=== PATIENT | female | born 1950 | race Hispanic/Latino ===

== ENCOUNTER 2017-06-14 18:43 | Emergency (ER) | payer MEDICARE, BC ==
[2017-06-14 18:44] VITALS: BMI 25.8
[2017-06-14 18:54] VITALS: BP 125/91; PULSE 78; RESP 24; TEMP 98.6; O2SAT 97
--- NOTE | 2017-06-14 19:25 | ED PDOC ---
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 The patient states that she took an accidental trip and fall in her kitchen landing on her right shoulder and felt like it was dislocated. She states that when EMS arrived at her home and turned her over, she heard her shoulder pop back into place. The patient denies LOC, headache, dizziness, chest pain, shortness of breath, dyspnea on exertion, abdominal pain, vomiting, diarrhea, back/neck pain, or any other complaint. Time/Duration: Prior to Arrival Symptom Onset: Sudden Symptom Course: Unchanged Activities at Onset: Rest, Light Context: Work Past Medical History - Provider Review Nursing Documentation Reviewed: Yes - Infectious Disease Hx of Infectious Diseases: None - Tetanus Immunization Tetanus Immunization: Unknown - Reproductive Menopause: Yes - Cardiac Hx Hypertension: Yes - Psychiatric Hx Anxiety: Yes Hx Substance Use: No Other/Comment: agoraphobia - Surgical History Hx Tubal Ligation: Yes - Suicidal Assessment Feels Threatened In Home Enviroment: No Family/Social History - Physician Review Nursing Documentation Reviewed: Yes Family/Social History: No Known Family HX Smoking Status: Unknown If Ever Smoked Hx Alcohol Use: No Hx Substance Use: No Allergies/Home Meds Allergies/Adverse Reactions: Allergies Penicillins Allergy (Verified 06/14/17 18:47) RASH flu vac Allergy (Uncoded 06/14/17 18:47) ITCHING Home Medications: Home Meds Medication Instructions Recorded Confirmed Citrical 500 mg PO DAILY 06/14/17 Colesevelam HCl [Welchol] 3 tab PO BID 06/14/17 06/14/17 Multivitamin (MVI) [M.v.i-12 10 Ml] 1 tab PO DAILY 06/14/17 06/14/17 Nebivolol HCl [Bystolic] 2.5 mg PO DAILY 06/14/17 06/14/17 Sertraline [Zoloft] 100 mg PO DAILY 06/14/17 06/14/17 clonazePAM [clonAZEPAM] 0.5 mg PO PRN PRN 06/14/17 06/14/17 Review of Systems - Physician Review All systems were reviewed & negative as marked: Yes - Review of Systems Constitutional: absent: Fevers, Night Sweats Eyes: Normal ENT: Normal Respiratory: absent: SOB Cardiovascular: absent: Chest Pain, TAFOYA Gastrointestinal: absent: Abdominal Pain, Diarrhea, Nausea, Vomiting Genitourinary Female: Normal Musculoskeletal: Other (Right shoulder pain). absent: Back Pain, Neck Pain Skin: Normal Neurological: absent: Headache, Dizziness Endocrine: Normal Hemo/Lymphatic: Normal Psychiatric: Normal Physical Exam Vital Signs Reviewed: Yes Vital Signs Temp Pulse Resp BP Pulse Ox 06/14/17 18:53 98.6 F 78 24 125/91 H 97 Temperature: Afebrile Blood Pressure: Hypertensive Pulse: Regular Respiratory Rate: Normal Appearance: Positive for: Well-Appearing, Non-Toxic, Other (Patient slightly tremulous) Pain Distress: None Mental Status: Positive for: Alert and Oriented X 3 - Systems Exam Head: Present: Atraumatic, Normocephalic Pupils: Present: PERRL Extroacular Muscles: Present: EOMI Conjunctiva: Present: Normal Mouth: Present: Moist Mucous Membranes Neck: Present: Normal Range of Motion Respiratory/Chest: Present: Clear to Auscultation, Good Air Exchange. No: Respiratory Distress, Accessory Muscle Use Cardiovascular: Present: Regular Rate and Rhythm, Normal S1, S2. No: Murmurs Abdomen: Present: Normal Bowel Sounds. No: Distention, Peritoneal Signs Back: Present: Normal Inspection Upper Extremity: Present: Normal Inspection. No: Cyanosis, Edema Lower Extremity: Present: Normal Inspection, Neurovascularly Intact, Other Neurological: Present: GCS=15, CN II-XII Intact, Speech Normal, Motor Func Grossly Intact, Normal Sensory Function, Normal Cerebellar Funct, Norm Deep Tendon Reflexes, Gait Normal, Normal 2Pt Descrimination Skin: Present: Warm, Dry, Normal Color. No: Rashes Psychiatric: Present: Alert, Oriented x 3, Normal Insight, Normal Concentration Medical Decision Making ED Course and Treatment: 06/14/17 19:37 Impression: A 67 year old female presents to the emergency department with right shoulder pain s/p a fall. Plan: -- Chest/ Pelvic/ Right Shoulder X-Ray -- Ativan -- Reassess and disposition Prior Visits: Notes and results from previous visits were reviewed. On 07/16/2013 the patient was seen in the emergency department with a complaint of right wrist pain after a mechanical fall. The patient was discharged home on Percocet and advised to follow up with PMD. Progress Notes: XR Pelvis, 1 or 2 Views IMPRESSION: 1. No fracture. 2. If hip pain persists, consider MRI to exclude occult fracture/internal derangement. 3. Incidental/non-acute findings are described above. Thank you for allowing us to participate in the care of your patient. Dictated and Authenticated by: Lance Duenas MD 06/14/2017 9:54 PM Eastern Time ([place] XR Right Shoulder Complete, 2 or More Views IMPRESSION: 1. No fracture. 2. If pain persists, consider nonemergent MRI for further evaluation. Thank you for allowing us to participate in the care of your patient. Dictated and Authenticated by: Lance Duenas MD 06/14/2017 9:51 PM Eastern Time ([place] XR Chest, 2 Views IMPRESSION: 1. No definite acute cardiopulmonary disease. 2. Non-acute findings are described above. Thank you for allowing us to participate in the care of your patient. Dictated and Authenticated by: Lance Duenas MD 06/14/2017 9:54 PM Eastern Time ([place] 06/14/17 22:04 Pt. claims shoulder was dislocated while in xray again then simply "spontaneously went back in again" when she adducted her shoulders back to her side. Serial neurovascular exams benign. Pt will be advised to f/u w/ ulises Redding (whom saw pt in ED) and with orthopedics. 06/14/17 22:06 - RAD Interpretation Radiology Orders: 06/14/17 19:16 CHEST TWO VIEWS (PA/LAT) [RAD] Stat 06/14/17 19:17 SHOULDER RIGHT [RAD] Stat 06/14/17 19:18 PELVIS ONE VIEW [RAD] Stat - Medication Orders Current Medication Orders: Discontinued Medications Lorazepam (Ativan) 0.5 mg PO ONCE ONE PRN Reason: Protocol Stop: 06/14/17 19:20 Last Admin: 06/14/17 19:34 Dose: 0.5 mg - Scribe Statement The provider has reviewed the documentation as recorded by the Manuel Osborne Provider Scribe Attestation: All medical record entries made by the Scribe were at my direction and personally dictated by me. I have reviewed the chart and agree that the record accurately reflects my personal performance of the history, physical exam, medical decision making, and the department course for this patient. I have also personally directed, reviewed, and agree with the discharge instructions and disposition Disposition/Present on Arrival - Present on Arrival Any Indicators Present on Arrival: No History of DVT/PE: No History of Uncontrolled Diabetes: No Urinary Catheter: No History of Decub. Ulcer: No History Surgical Site Infection Following: None - Disposition Have Diagnosis and Disposition been Completed?: Yes Diagnosis: Fall, Sprain of shoulder, right Disposition: HOME/ ROUTINE Disposition Time: 22:01 Patient Plan: Discharge Condition: CRITICAL Discharge Instructions (ExitCare): Shoulder Sprain (ED) Print Language: BURUNDIAN Prescriptions: Ibuprofen 600 mg PO Q6 PRN #40 tablet PRN Reason: Pain, Moderate (4-7) Referrals: Darrius Aiken MD [Staff Provider] - Follow up with primary Forms: [email or web address] (Emirati)
--- NOTE | 2017-06-14 21:51 | RAD ---
EXAM: XR Right Shoulder Complete, 2 or More Views CLINICAL HISTORY: 67 years old, female; Injury or trauma; Fall; Initial encounter; Dislocation; Severity not specified; Shoulder; Right; Injury details: Pt states she dislocated her shoulder when she fell, but it popped back in when the ems picked her up. She felt it dislocate again while raising her arms for lateral chest, but again it popped back in. ; Additional info: [place]oudler pain TECHNIQUE: Two or more views of the right shoulder. COMPARISON: No relevant prior studies available. FINDINGS: Bones/joints: No acute fracture. No dislocation. Soft tissues: Unremarkable. IMPRESSION: 1. No fracture. 2. If pain persists, consider nonemergent MRI for further evaluation.
--- NOTE | 2017-06-14 21:54 | RAD ---
EXAM: XR Chest, 2 Views CLINICAL HISTORY: 67 years old, female; Pain; Chest pain; Type not specified; Additional info: S/P fall TECHNIQUE: Frontal and lateral views of the chest. COMPARISON: No relevant prior studies available. FINDINGS: Limitations: Rotation - mild. Lungs: Minimal subsegmental atelectasis/scarring. No consolidation. Pleural space: No pleural effusion. No pneumothorax. Heart: No cardiomegaly. Mediastinum: Unremarkable. Bones/joints: Fracture RIGHT lateral fifth rib, likely chronic. No displaced fracture. IMPRESSION: 1. No definite acute cardiopulmonary disease. 2.Non-acute findings are described above.
--- NOTE | 2017-06-14 21:55 | RAD ---
EXAM: XR Pelvis, 1 or 2 Views CLINICAL HISTORY: 67 years old, female; Pain; Pelvic pain; Additional info: S/P fall TECHNIQUE: Frontal view of the pelvis. COMPARISON: No relevant prior studies available. FINDINGS: Bones/joints: No acute fracture. Degenerative changes of lumbar spine. No dislocation. Soft tissues: Several rounded calcifications within pelvis, most likely phleboliths. IMPRESSION: 1. No fracture. 2. If hip pain persists, consider MRI to exclude occult fracture/internal derangement. 3. Incidental/non-acute findings are described above.
== END 2017-06-14 22:40 | disposition home or self-care (01) ==
LOC: ED 18:43
DX: S43.401A Unspecified sprain of right shoulder joint, initial encounter (principal); W01.0XXA Fall on same level from slipping, tripping and stumbling without subsequent striking against object, initial encounter; I10 Essential (primary) hypertension; Z88.0 Allergy status to penicillin; Z98.51 Tubal ligation status; Y92.000 Kitchen of unspecified non-institutional (private) residence as the place of occurrence of the external cause

== ENCOUNTER 2017-09-26 08:01 | Inpatient (IN) | payer MEDICARE, BC ==
[2017-09-26 08:26] VITALS: BMI 25.4
--- NOTE | 2017-09-26 08:33 | ED PDOC ---
Arrival/HPI - General Chief Complaint: Trauma Time Seen by Provider: 09/26/17 08:16 Historian: Patient - History of Present Illness Narrative History of Present Illness (Text): 09/26/17 08:37 67 year old female, with past medical history of gait instability presents to the Emergency department complaining of multiple falls in the past. Patient presents to the Emergency department today for eval prior to be seen by Dr. Redding. Patient informs history of falls with last episode in mid-July. Patient additionally informs history of chronic right shoulder dislocation secondary to her multiple falls. Patient informs mild anxiety but denies any somatic complaints. Patient denies any fever, chills, nausea, vomiting, abdominal pain, diarrhea, chest pain, shortness of breath or any other complaints. PMD: Dr. Redding 09/26/17 13:21 Time/Duration: Other () Symptom Course: Unchanged Activities at Onset: Light Context: Home Past Medical History - Provider Review Nursing Documentation Reviewed: Yes - Infectious Disease Hx of Infectious Diseases: None - Tetanus Immunization Tetanus Immunization: Unknown - Cardiac Hx Hypertension: Yes - Psychiatric Hx Anxiety: Yes Hx Panic Disorder: Yes Hx Substance Use: No Other/Comment: agoraphobia - Surgical History Hx Orthopedic Surgery: Yes (right wrist) Hx Tubal Ligation: Yes - Suicidal Assessment Feels Threatened In Home Enviroment: No Family/Social History - Physician Review Nursing Documentation Reviewed: Yes Family/Social History: No Known Family HX Smoking Status: Never Smoked Hx Alcohol Use: No Hx Substance Use: No Allergies/Home Meds Allergies/Adverse Reactions: Allergies Penicillins Allergy (Verified 09/26/17 08:17) RASH flu vac Allergy (Uncoded 09/26/17 08:17) ITCHING Home Medications: Home Meds Medication Instructions Recorded Confirmed Citrical 500 mg PO DAILY 06/14/17 09/26/17 Colesevelam HCl [Welchol] 3 tab PO BID 06/14/17 09/26/17 Multivitamin (MVI) [M.v.i-12 10 Ml] 1 tab PO DAILY 06/14/17 09/26/17 Nebivolol HCl [Bystolic] 2.5 mg PO DAILY 06/14/17 09/26/17 Review of Systems - Physician Review All systems were reviewed & negative as marked: Yes - Review of Systems Constitutional: Normal. absent: Fevers Eyes: Normal ENT: Normal Respiratory: Normal. absent: SOB Cardiovascular: Normal. absent: Chest Pain Gastrointestinal: Normal. absent: Abdominal Pain, Diarrhea, Nausea, Vomiting Genitourinary Female: Normal Musculoskeletal: Other (chronic right shoulder dislocation) Skin: Normal Neurological: Normal Endocrine: Normal Hemo/Lymphatic: Normal Psychiatric: Normal Physical Exam Vital Signs Reviewed: Yes Vital Signs Temp Pulse Resp BP Pulse Ox 09/26/17 10:13 88 20 131/77 98 09/26/17 08:30 98.3 F 09/26/17 08:20 93 H 18 121/78 97 Temperature: Afebrile Blood Pressure: Normal Pulse: Regular Respiratory Rate: Normal Appearance: Positive for: Well-Appearing, Non-Toxic, Comfortable Pain Distress: None Mental Status: Positive for: Alert and Oriented X 3 - Systems Exam Head: Present: Atraumatic, Normocephalic Pupils: Present: PERRL Extroacular Muscles: Present: EOMI Conjunctiva: Present: Normal Mouth: Present: Moist Mucous Membranes Neck: Present: Normal Range of Motion Respiratory/Chest: Present: Clear to Auscultation, Good Air Exchange. No: Respiratory Distress, Accessory Muscle Use Cardiovascular: Present: Regular Rate and Rhythm, Normal S1, S2. No: Murmurs Abdomen: Present: Normal Bowel Sounds. No: Tenderness, Distention, Peritoneal Signs Back: Present: Normal Inspection Upper Extremity: Present: Other (hx of right shoulder dislocation). No: Cyanosis, Edema Lower Extremity: Present: Normal Inspection. No: Edema Neurological: Present: GCS=15, CN II-XII Intact, Speech Normal Skin: Present: Warm, Dry, Normal Color. No: Rashes Psychiatric: Present: Alert, Oriented x 3, Normal Insight, Normal Concentration Medical Decision Making ED Course and Treatment: 09/26/17 08:44 Impression: 67 year old female presents to the Emergency department for history of multiple falls. Plan: -- Labs -- Urinalysis -- Reassess and disposition Progress Notes: 09/26/17 09:45 Patient was seen by Dr. Redding at bedside, who accepts patient for admission. - Lab Interpretations Lab Results: 09/26/17 09:15 09/26/17 09:15 Lab Results 09/26/17 09:15: Sodium 143, Potassium 3.9, Chloride 108 H, Carbon Dioxide 26, Anion Gap 12, BUN 20, Creatinine 0.9, Est GFR ( Amer) > 60, Est GFR (Non- Af Amer) > 60, Random Glucose 89, Calcium 9.4, Total Bilirubin 0.4, AST 33, ALT 33, Alkaline Phosphatase 84, Total Protein 6.8, Albumin 3.5, Globulin 3.4, Albumin/Globulin Ratio 1.0 L 09/26/17 09:15: PT 13.1 H, INR 1.14 H, APTT 28.5 09/26/17 09:15: WBC 10.4 D, RBC 4.54, Hgb 13.1, Hct 40.2, MCV 88.5, MCH 28.9, MCHC 32.6, RDW 15.9 H, Plt Count 219, MPV 11.7 H, Gran % 80.5 H, Lymph % (Auto) 11.4 L, [place] % (Auto) 5.9, Eos % (Auto) 1.9, Baso % (Auto) 0.3, Gran # 8.37 H, Lymph # (Auto) 1.2, [place] # (Auto) 0.6, Eos # (Auto) 0.2, Baso # (Auto) 0.03 - Medication Orders Current Medication Orders: Ibuprofen (Motrin Tab) 600 mg PO Q6 PRN PRN Reason: Pain, moderate (4-7) Multivitamins (Thera Tab) 1 tab PO DAILY ILIR Non-Formulary Medication (Nebivolol Hcl [Bystolic]) 2.5 mg PO DAILY ILIR Non-Formulary Medication (Citrical) 500 mg PO DAILY ILIR Non Formulary Medication ( Colesevelam Hcl [ Welchol] 625mg 3 tab PO BID ILIR Discontinued Medications Non-Formulary Medication (Multivitamin (Mvi) [M.V.I.-12 Inj]) 1 tab PO DAILY ILIR Non-Formulary Medication (Colesevelam Hcl [Welchol]) 3 tab PO BID ILIR - Scribe Statement The provider has reviewed the documentation as recorded by the Manuel Cary. All medical record entries made by the Aishaibtia were at my direction and personally dictated by me. I have reviewed the chart and agree that the record accurately reflects my personal performance of the history, physical exam, medical decision making, and the department course for this patient. I have also personally directed, reviewed, and agree with the discharge instructions and disposition. Disposition/Present on Arrival - Present on Arrival Any Indicators Present on Arrival: No History of DVT/PE: No History of Uncontrolled Diabetes: No Urinary Catheter: No History of Decub. Ulcer: No History Surgical Site Infection Following: None - Disposition Have Diagnosis and Disposition been Completed?: Yes Diagnosis: Frequent falls, Gait instability Disposition: HOSPITALIZED Disposition Time: 10:00 Condition: STABLE
[2017-09-26 09:24] LABS: BASO # 0.03 K/mm3 (0.0-2.0); BASO % 0.3 % (0.0-3.0); EOS # 0.2 (0.0-0.7); EOS % 1.9 % (1.5-5.0); GRAN # 8.37 (1.4-6.5); GRAN % 80.5 % (50.0-68.0); HEMOGLOBIN 13.1 g/dL (12.0-16.0); LYMPH # 1.2 (1.2-3.4); LYMPH % 11.4 % (22.0-35.0); MEAN CELL VOLUME 88.5 fl (80.0-105.0); MEAN CORPUSCULAR HEMOGLOBIN 28.9 pg (25.0-35.0); MEAN CORPUSCULAR HGB CONC 32.6 g/dl (31.0-37.0); MEAN PLATELET VOLUME 11.7 fl (7.0-11.0); MONO # 0.6 (0.1-0.6); MONO % 5.9 % (1.0-6.0); RBC 4.54 10^6/uL (3.5-6.1); RED CELL DISTRIBUTION WIDTH 15.9 % (11.5-14.5); WHITE BLOOD COUNT 10.4 10^3/ul (4.5-11.0)
[2017-09-26 09:40] LABS: INR 1.14 (0.93-1.08); PARTIAL THROMBOPLASTIN TIME 28.5 Seconds (25.1-36.5); PROTHROMBIN TIME 13.1 SECONDS (9.4-12.5)
[2017-09-26 09:43] LABS: ALBUMIN 3.5 g/dL (3.0-4.8); ALT/SGPT 33 U/L (7-56); AST/SGOT 33 U/L (14-36); BLOOD UREA NITROGEN 20 mg/dL (7-21); CALCIUM 9.4 mg/dL (8.4-10.5); GFR AFRICAN-AMERICAN > 60; GFR NON-AFRICAN AMERICAN > 60
--- NOTE | 2017-09-26 15:15 | CON ---
DATE: 09/26/2017 NEUROLOGY CONSULTATION CHIEF COMPLAINT: Gait instability. HISTORY OF PRESENT ILLNESS: This is a 67-year-old woman with history of anxiety, hypertension, history of psychogenic phobia diagnosed by psychiatrist, who has been having multiple falls in the past. Apparently, from initial multiple fall, which resulted in patient is very anxious to walk and felt very unstable on her feet; after which, she went through physical therapy, which improvement in her gait had occurred and was also seen Psychiatry, Dr. Kendall, by that time who recommended Zoloft and Klonopin, she had some mild side effects to it; therefore, it was discontinued and has now followed up with Dr. Kendall and presented to have multiple falls in her house backyard as well as , which resulted in shoulder dislocation and also increased panic to have a normal gait function. She was seen a neurologist, named Dr. Gomez in [place] who did an MRI of the brain on 06/23/2017 which showed no evidence of anything acute, just mild generalized atrophy, MRI of the brain and of the C-spine, which basically showed some mild dextroscoliosis of the cervical vertebral column and some complexes C3-C4 and C6-C7 to mild spinal stenosis with multilevel neuroforaminal compromise, but no cord involvement. MRI of the thoracic spine, which showed no significant disk herniation or central canal stenosis on 08/05/2017 and then had an MRI of the lumbar spine on 08/05/2017 showing pretty much degenerative scoliosis, multilevel degenerative changes, and multilevel facet hypertrophy especially at L4-L5 and L5-S1 with some underlying degenerative bulge at L5-S1 and [id number] left neuroforaminal narrowing with encroachment of the left exiting nerve root. She underwent some lab work by the neurologist on 09/15/2017 which showed a normal celiac profile, normal Lyme test, normal B12, normal Sjogren panel, normal homocystine level, normal HUMBERTO, normal ceruloplasmin and copper levels with a normal vitamin D level, normal TSH as well as . Her acetylcholine receptor antibodies are currently pending in terms of results and neurologist, Dr. Gomez, said it is more likely psychogenic than central or peripheral at all. Apparently, she had been having multiple falls again and she has a dislocated right shoulder for which Orthopedic management is currently pending despite she has gained the full confidence to walk. No focal paresthesia of the extremities, though she is able to lift her both legs and arms off the bed without any pronator drift. HOME MEDICATIONS: Reviewed. SOCIAL HISTORY: No illicit drug use, smoking, or EtOH abuse. PAST MEDICAL HISTORY: As above in the HPI. FAMILY HISTORY: Noncontributory. ALLERGIES: ALLERGIC TO PENICILLIN, FLU VACCINE. REVIEW OF SYSTEMS: A 14-point review of systems is negative except as per the HPI. PHYSICAL EXAMINATION: VITAL SIGNS: Temperature 98.3, pulse rate of 88, blood pressure 131/77, respiratory rate 20, oxygen saturation 98% on room air. GENERAL: The patient is sitting up in bed, in no acute distress. HEENT: Atraumatic, normocephalic. PERRLA. Extraocular muscles intact. NECK: Supple. No JVD, no adenopathy noted. LUNGS: Clear to auscultation. No adventitious sounds. HEART: S1, S2. Normal rate and rhythm. No murmurs, rubs, or gallops. ABDOMEN: Soft, nontender, and nondistended. Bowel sounds are present. EXTREMITIES: No clubbing. No cyanosis. Peripheral pulses are 2+ bilaterally. NEUROLOGIC: The patient is very anxious but otherwise alert and oriented x3. Speech is fluent without any errors. Cranial nerves II through XII intact. Motor: Moves all extremities equally. Toes are downgoing bilaterally. Sensory: Light touch, pinprick, proprioception, and vibration intact. DTRs are 2+ throughout. Coordination: [id number] intact. No pronator drift seen. There is no atrophy of the muscles. She is very anxious when sitting at the edge of the bed and trying to stand her up. LABORATORY DATA: Sodium is 143, potassium 3.9, chloride 108, carbon dioxide 26, BUN of 20, creatinine 0.9. Random glucose of 89. ASSESSMENT AND PLAN: This is a 67-year-old woman with history of multiple falls, history of hypertension, history of dislocated right shoulder, and history of anxiety, who has come in with gait instability. Her gait instability is most likely secondary to deconditioned state, superimposed underlying psychogenic phobia towards walking in a normal gait. At this time, physical therapy has helped her in the past. She is at risk for falls given that she has a recent dislocated shoulder and risk for further falls if she does not get any further rehab. At this time, I recommend: 1. Physical therapy and occupational therapy at subacute rehab at [facility] and agree with the plan in order for her to go there, she will regain better function for her gait. 2. Once she receives subacute rehab, she can follow up with neurologist, Dr. Gomez and continue with CoQ10 200 mg p.o. daily for anxiety as well as for fatigue. At this time, continue with PT, OT recommendations. Thank you for this consult. Bernabe Thompson MD
[2017-09-26] MEDS ORDERED: Non Formulary Medication (Colesevelam Hcl [Welchol] 3 TAB) PO SCH ×2 (18:00)
[2017-09-26] MEDS: COLESEVELAM HCL 625 MG PO SCH (18:46)
--- NOTE | 2017-09-26 20:48 | HP ---
DATE OF EXAM: HISTORY OF PRESENT ILLNESS: I saw her in the office and over the past 6 months she has been having multiple issues with gait instability and falling. She had dislocated her shoulder numerous times, had surgery, and dislocated again. She has seen neurologists, orthopedic doctors. They all recommended more extensive physical therapy like subacute rehab. She can only walk if we hold on to her and even with a walker she is not doing well. She has got a very bizarre gait. 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 I sent her to the emergency room for admission for subacute rehab. She had multiple falls, a very bad gait. She had chronic right shoulder dislocation after multiple falls and surgery. She has anxiety, lot of somatic complaints. She was brought in by her who is having a hard time taking care of her now because of her need to be held every time she walks, but trying to get her to be independent again and this is the recommendation from Neurology, Orthopedics, and myself. She has anxiety, panic, agoraphobia. She had surgery on her right wrist, tubal ligation, and the shoulder surgery. FAMILY HISTORY: No known family history. SOCIAL HISTORY: Never smoked. No alcohol. No drugs. ALLERGIES: ALLERGIC TO PENICILLIN AND FLU SHOT. MEDICATIONS: She is on Citracal, WelChol, multivitamin, and Bystolic for hypertension. REVIEW OF SYSTEMS: She has no acute vision or hearing changes. No sore throat. No neck pain. No chest pain. No palpitation. No shortness of breath. No coughing. No abdominal pain, nausea, vomiting, or diarrhea. She has chronic right shoulder pain, dislocation from the numerous falls, mainly on that shoulder. She has a widened gait when she walks and has a very strange gait, almost like a neurological gait, has been seeing a neurologist for this. Skin is intact. Alert, comfortable at rest, but very bizarre behavior when she stands to walk with anxiety. Thyroid midline. No palpable appreciable lymphadenopathy. PHYSICAL EXAMINATION: VITAL SIGNS: She has 98.3 temperature, 93 pulse, 18 respiratory rate, 121/78 blood pressure, 97% O2 saturations on room air. GENERAL: She is well appearing, comfortable, nontoxic in bed. Alert and oriented x3. HEENT: Head is atraumatic, normocephalic. Extraocular muscles are intact. Pupils equal and reactive to light and accommodation. Throat is moist. NECK: Supple. HEART: Regular rate. Normal S1 and S2. LUNGS: Decreased breath sounds, but clear to auscultation bilaterally. No wheezes, no rhonchi, no rales. ABDOMEN: Soft, nontender. Positive bowel sounds. No guarding. No rebound. No CVA tenderness. EXTREMITIES: No edema in the lower extremities, history of right shoulder dislocation and it hurts her with motion. NEUROLOGIC: GCS is 15. Cranial nerves II through XII grossly intact. She smiles well, midline tongue. Closes her eyes tight. Squeezes both hands equally. Alert and oriented x3. She has a very bad gait dysfunction. LABORATORY DATA: She had multiple tests. She had a lab test. She has a 10.4 white count, 13.1 hemoglobin, 40.2 hematocrit with 219 platelets. INR 1.1. Sodium 143, potassium 3.9, BUN 20, creatinine 0.9, GFR is greater than 60, sugar is 89, calcium is 9.4. Total bilirubin is 0.4, AST is 33, ALT is 33, alkaline phosphatase 84, total protein 6.8. IMPRESSION: She will have consults with Neurology, Physical Therapy. She will be put back on her medications and consult the case management, probably get a subacute rehab at [facility]. The recalls [facility] have made arrangements for 3 overnights here, then to go to [facility] because she needs physical therapy for gait dysfunction. Joseph Redding DO
[2017-09-27 07:02] LABS: HEMOGLOBIN 13.6 g/dL (12.0-16.0); MEAN CORPUSCULAR HEMOGLOBIN 29.3 pg (25.0-35.0); MEAN CORPUSCULAR HGB CONC 32.9 g/dl (31.0-37.0); MEAN PLATELET VOLUME 11.9 fl (7.0-11.0); RBC 4.64 10^6/uL (3.5-6.1); WHITE BLOOD COUNT 8.4 10^3/ul (4.5-11.0)
[2017-09-27 07:34] LABS: ALBUMIN 3.4 g/dL (3.0-4.8); ALT/SGPT 36 U/L (7-56); AST/SGOT 47 U/L (14-36); BLOOD UREA NITROGEN 16 mg/dL (7-21); GFR AFRICAN-AMERICAN > 60; GFR NON-AFRICAN AMERICAN > 60
[2017-09-27] MEDS: COLESEVELAM HCL 625 MG PO SCH ×2 (09:24→18:07)
[2017-09-27] MEDS: Multivitamin Therapeutic Tab PO SCH (09:26)
[2017-09-27] MEDS ORDERED: CITRICAL PO SCH ×2 (10:00)
[2017-09-27] MEDS ORDERED: NEBIVOLOL HCL 2.5 MG PO SCH ×2 (10:00)
[2017-09-27] MEDS ORDERED: MULTIVITAMIN PO SCH (10:00)
[2017-09-27 23:23] VITALS: RESP 18
--- NOTE | 2017-09-28 09:31 | PN ---
DATE: SUBJECTIVE: I see her resting comfortably in bed. She had a rough night last night. She could not sleep due to the neighbors snoring and lots of music. She is resting. She has one more night before she can go to subacute rehab. She is on Caltrate, Welchol, Motrin, Bystolic and Thera-Tabs. She is getting physical therapy. She has a rough time walking, high risk for falls. She had fallen maybe 6 to 7 times and dislocated shoulder a few times. She is supposed to go for surgery, but the surgeon will not do surgery unless she is walking better. They recommended subacute rehab, also the neurologist did too. She has a lot of agoraphobia and problems with worry about walking. PHYSICAL EXAMINATION: VITAL SIGNS: She has a 97.7 temp, 62 pulse, 107/72 blood pressure, 18 respiratory rate, 98% O2 sat on room air. HEENT: Head is atraumatic, normocephalic. HEART: Regular rate. LUNGS: Clear to auscultation. ABDOMEN: Soft. EXTREMITIES: No edema. LABORATORY DATA: She has an 8.4 white count, 13.6 hemoglobin, 41.3 hematocrit with a 205 platelets. She has a 142 sodium, potassium 4.3, BUN 16, creatinine 0.8, GFR is greater than 60, sugar is 94, calcium is 9, total bili is 0.6, AST is 47, ALT is 36, alk phos 76, total protein 6.8. ASSESSMENT AND PLAN: I understand now she cannot go to [facility]. She has to go to [facility]. We will get that done by tomorrow. We will get her there for subacute rehab for the patient's safety. High risk for falls. She has fallen numerous times. Dislocated her shoulder numerous times. Seen Orthopedics and Neurology and they all recommend subacute rehab that will be the plan for her. Hopefully, she will be able to be discharged tomorrow to [facility]. Joseph Redding DO
[2017-09-28] MEDS: Multivitamin Therapeutic Tab PO SCH (09:48)
[2017-09-28] MEDS: CALCIUM CITRATE 400 MG PO SCH (09:48)
[2017-09-28] MEDS: [UNRECOGNIZED DRUG - OTHER] PO SCH (09:48)
[2017-09-28] MEDS: COLESEVELAM HCL 625 MG PO SCH ×2 (09:49→17:37)
[2017-09-28] MEDS: NEBIVOLOL HCL 2.5 MG PO SCH (09:49)
--- NOTE | 2017-09-28 14:10 | PN ---
DATE: SUBJECTIVE: I saw her sitting out of bed to chair. She is having problems with walking. She is looking forward to get into subacute rehab. She had multiple falls, dislocation of the right shoulder, anxiety, agoraphobia, gait instability, she has psychogenic phobia. A workup with physical therapy for subacute at [facility], two more overnights and she will get there. Neurology appreciated. She is eating okay. OBJECTIVE: VITAL SIGNS: Temperature 97.3, pulse 78, blood pressure 104/72, respiratory rate 16, 98% O2 saturation on room air. HEENT: Head is atraumatic, normocephalic. HEART: Regular rate. LUNGS: Clear to auscultation. ABDOMEN: Soft. EXTREMITIES: No edema. She walks with a guarded gait, very dysfunctional. LABORATORY DATA: She has 142 sodium, potassium 4.3, BUN 16, creatinine 0.8, GFR is greater than 60, sugar is 94, calcium is 9. Total bili is 0.6, AST is 47, ALT is 36, alk phos 26, total protein 6.8. INR is 1.14. White count 8.4, [id number] , hematocrit 41.3 and platelets 205. Discussed with case management. We will get her to [facility] in 2 days. Going for physical therapy. Joseph Redding DO
[2017-09-28 16:14] LABS: PH,URINE 5.5 (4.7-8.0); URINE BILIRUBIN NEGATIVE (NEGATIVE); URINE BLOOD NEGATIVE (NEGATIVE); URINE GLUCOSE (UA) NEGATIVE (NEGATIVE); URINE LEUKOCYTE ESTERASE TRACE Leu/uL (NEGATIVE); URINE NITRATE POSITIVE (NEGATIVE); URINE PROTEIN NEGATIVE mg/dL (<30 mg/dL); URINE UROBILINOGEN 0.2 E.U./dL (<1 E.U./dL)
[2017-09-28 16:18] LABS: URINE COLOR YELLOW (YELLOW)
[2017-09-28 16:24] LABS: URINE APPEARANCE SL CLOUDY (CLEAR); URINE BACTERIA MANY (NEG); URINE RBC NEGATIVE /hpf (0-2); URINE WBC 25 - 30 /hpf (0-6)
--- NOTE | 2017-09-29 02:03 | CON ---
DATE: HISTORY OF PRESENT ILLNESS: In short, the patient is 67-year-old female, not known previous psychiatric history, most likely the patient has history of anxiety due to general medical condition. The patient has multiple falls in the past and developed some phobia for falls that is why this typewriter repairer got involved into the patient's care. The patient was seen and examined, discussed with the medical staff. The patient presented to be alert and oriented, pleasant and cooperative. The patient said that first she started to fall and things got out of control sometimes at Halloween. The patient reported that she had frequent falls and she had some shoulder dislocation because of the falls and as a compensation for that the patient developed severe anxiety and fear of falling. At present moment, the patient is afraid to leave the house without any assistance from her house. The patient made it clear that anxiety came after falls, but not anxiety was provoking her falls. The patient denied any dizziness or lightheadedness before falls and denied loss of consciousness and she could not have any rational explanation for her falls. The patient denied being depressed. Denied thoughts of harming herself or others. The patient reported for anxiety. She was seeing Dr. Kendall here at [facility], local psychiatrist. The patient reported that she had severe shakiness and anxiety symptoms due to Zoloft which she was prescribed and Klonopin. The patient refused to go back there and at present moment, the patient reported that she does not feel that she needs to see psychiatrist and she does not feel that she needs to be on any psychotropic medication. This typewriter repairer offered the patient therapy and the patient agreed that this typewriter repairer give the patient information about local programs and about Dr. Olman Moncada here in the community. The patient seems to be open to that option. The patient denied history of suicidal attempts. Denied history of being depressed. Denied history of substance abuse and reported that her family is very supportive. Vital signs reviewed, seems to be stable. Temperature 97.7, pulse 62, blood pressure 107/72, respiration rate 18, oxygen saturation is 98. Medications reviewed, Motrin, multivitamins, calcium chloride and Welchol. Labs reviewed. Coagulation reviewed. Chemistry reviewed. No significant changes. Leukocyte esterase trace. Microbiology reviewed. MENTAL STATUS EXAM: The patient was pleasant, cooperative, socially appropriate. Intermittent eye contact. Speech was normal rate, tone, quality and quantity, but at the same time overinclusive. Thought process seems to be circumstantial, overinclusive as well. Thought content, the patient denied visual, auditory or tactile hallucinations. Denied paranoid ideation. The patient denied thoughts of harming herself or others. Denied intents or plan. Insight and judgment seems to be improving. Impulses are well controlled. IMPRESSION: Rule out anxiety due to general medical condition. Rule out generalized anxiety disorder, rule out agoraphobia. PLAN: Continue current management. This typewriter repairer will suggest therapy and if therapy will be not effective, only in that case would consider psychotropic medication, but right now the patient does not need to have any benzodiazepines or serotonin reuptake inhibitors or any anxiolytics because it will give more side effects as well as risk of falls. The patient was provided with information about local psychiatrists and clinics, the patient seems to be appreciative. The patient needs to be seen by psychiatrist at subacute rehab. The patient is not suicidal, not homicidal, deemed not to be in danger to self or others. Should you have any questions, give me a call back, but this typewriter repairer will sign off. Thank you very much for letting me participate in care of your patient. Stefania Castillo MD
[2017-09-29 07:31] LABS: HEMOGLOBIN 13.6 g/dL (12.0-16.0); MEAN CELL VOLUME 89.1 fl (80.0-105.0); MEAN CORPUSCULAR HEMOGLOBIN 28.6 pg (25.0-35.0); MEAN CORPUSCULAR HGB CONC 32.2 g/dl (31.0-37.0); MEAN PLATELET VOLUME 11.6 fl (7.0-11.0); RBC 4.75 10^6/uL (3.5-6.1); WHITE BLOOD COUNT 9.2 10^3/ul (4.5-11.0)
[2017-09-29 08:03] LABS: ALB/GLOB RATIO 1.1 (1.1-1.8); ALBUMIN 3.6 g/dL (3.0-4.8); ALT/SGPT 27 U/L (7-56); AST/SGOT 25 U/L (14-36); BLOOD UREA NITROGEN 16 mg/dL (7-21); CALCIUM 9.5 mg/dL (8.4-10.5); GFR AFRICAN-AMERICAN > 60; GFR NON-AFRICAN AMERICAN > 60
[2017-09-29 08:22] VITALS: BP 123/72; PULSE 67; TEMP 97.6; O2SAT 97
[2017-09-29] MEDS: Multivitamin Therapeutic Tab PO SCH (11:11)
[2017-09-29] MEDS: [UNRECOGNIZED DRUG - OTHER] PO SCH (11:12)
[2017-09-29] MEDS: CALCIUM CITRATE 400 MG PO SCH (11:12)
[2017-09-29] MEDS: NEBIVOLOL HCL 2.5 MG PO SCH (11:12)
[2017-09-29] MEDS: COLESEVELAM HCL 625 MG PO SCH (11:13)
--- NOTE | 2017-09-30 08:22 | DS ---
HISTORY OF PRESENT ILLNESS: She is going to be going to [facility] today for subacute rehab. She has a dysfunctional gait and it is unsafe for her to go home. She has fallen 4 to 5 times, dislocated shoulder numerous times. Orthopedics will not do surgery on the shoulder until she is better with physical therapy. She is on Caltrate, Welchol, Motrin, Bystolic, and Thera-Tabs. PHYSICAL EXAMINATION: VITAL SIGNS: She has a 97.6 temperature, 67 pulse, 123/72 blood pressure, 18 respiratory rate, 97% O2 sat on room air. HEENT: Head is atraumatic, normocephalic. HEART: Regular rate. LUNGS: Decreased breath sounds. Clear to auscultation. ABDOMEN: Soft, nontender, positive bowel sounds. EXTREMITIES: No edema. LABORATORY DATA: She has a 9.2 white count, 13.6 hemoglobin, 42.3 hematocrit with 223 platelets. She has a 141 sodium, potassium 4.4, BUN 16, creatinine 0.9, GFR is greater than 63, sugar is 88, calcium is 9.5, total bilirubin is 0.4, AST is 25, ALT is 27, alkaline phosphatase 88, total protein 6.9. ASSESSMENT AND PLAN: She was by Psychiatry to get their opinion of her agoraphobia. I will plan to discharge to [facility], she was put in, because it was unsafe for her to be at home. She has fallen numerous times. She is a high risk. She has dislocated her shoulder numerous times and now needs surgery. They will not do surgery until she is walking better. The plan is to go to physical therapy. This was recommended by the Orthopedic doctor and by Neurology on the outpatient and she needs this for patient's safety. Then, hopefully she will get to surgery when she gets out of rehab. She is being discharged to [facility] for subacute rehab. Joseph Redding DO
== END 2017-09-29 14:33 | DRG 882 ==
LOC: ED 08:01 → ERH 09:45 → 5RNO 10:28 → ERH 10:41 → 5RNO 10:47
PROVIDERS: ADMIT Family Medicine; ATTEND Family Medicine
DX: F40.01 Agoraphobia with panic disorder (principal); F54 Psychological and behavioral factors associated with disorders or diseases classified elsewhere; M24.411 Recurrent dislocation, right shoulder; R26.9 Unspecified abnormalities of gait and mobility; R29.6 Repeated falls; I10 Essential (primary) hypertension; Z88.0 Allergy status to penicillin; Z91.81 History of falling